=== PATIENT | female | born 1985 | race Caucasian/White ===

== ENCOUNTER → 2018-03-14 13:45 | Outpatient (CLI) | payer MEDICAID, SELFPAY ==
[2018-03-14 16:38] LABS: Estradiol 32.1 pg/mL; Follicle Stimulating Hormone 7.8 mIU/mL; Free T3 3.1 pg/mL (2.18-3.98); Prolactin 3.4 ng/mL; Thyroid Stim Hormone (TSH) 2.22 uIU/mL (0.358-3.74)
[2018-03-14 17:59] LABS: Progesterone Level 0.07 ng/mL (See Comment)
[2018-03-16 04:10] LABS: DHEA Sulfate 182.1 ug/dL (84.8-378.0)
[2018-03-16 10:23] LABS: Sex Hormone-binding Globulin 93.1 nmol/L (24.6-122.0)
[2018-03-18 12:34] LABS: 17-Hydroxyprogesterone 19 ng/dL (.)
== END ==
PROVIDERS: Visit Provider Obstetrics & Gynecology
DX: N91.2 Amenorrhea, unspecified (principal)
CPT/HCPCS: 82306; 82533; 82627; 82670; 83001; 83498; 84144; 84146; 84270; 84403; 84439; 84443; 84481; 82626

== ENCOUNTER → 2018-05-11 10:52 | Outpatient (CLI) | payer OTHER, MEDICAID, SELFPAY ==
[2018-05-11 13:55] LABS: Estradiol 38.2 pg/mL
[2018-05-11 14:00] LABS: Progesterone Level 0.21 ng/mL (See Comment)
== END ==
PROVIDERS: Visit Provider Obstetrics & Gynecology
DX: N91.2 Amenorrhea, unspecified (principal)
CPT/HCPCS: 36415; 82670; 84144

== ENCOUNTER → 2018-05-18 13:38 | Outpatient (CLI) | payer OTHER, MEDICAID, SELFPAY ==
[2018-05-18 19:27] LABS: Estradiol < 11.0 pg/mL
[2018-05-18 19:35] LABS: Progesterone Level 0.19 ng/mL (See Comment)
== END ==
PROVIDERS: Visit Provider Obstetrics & Gynecology
DX: N91.2 Amenorrhea, unspecified (principal)
CPT/HCPCS: 36415; 82670; 84144

== ENCOUNTER → 2019-04-19 16:44 | Outpatient (CLI) | payer OTHER, SELFPAY ==
[2019-04-19 18:06] LABS: AST(SGOT) 22 U/L (15-37); Alanine Aminotransfer ALT/SGPT 22 U/L (13-56); Ferritin 27 ng/mL (8-252); Rheumatoid Factor < 10.0 IU/mL (<15)
[2019-04-21 16:40] LABS: ANTINUCLEAR ANTIBODIES DIRECT Negative (Negative)
[2019-04-22 06:16] LABS: Endomysial Antibody IgA Negative (Negative); Immunoglobulin A 175 mg/dL (87-352)
[2019-04-24 20:22] LABS: Copper, Serum or Plasma 84 ug/dL (72-166); Deamidated Gliadin IgA 4 units (0-19); Deamidated Gliadin IgG 4 units (0-19); t-Transglutaminase IgA <2 U/mL (0-3)
== END ==
PROVIDERS: Visit Provider Obstetrics & Gynecology
DX: N91.2 Amenorrhea, unspecified (principal)
CPT/HCPCS: 82525; 82728; 82784; 83516; 84450; 84460; 86038; 86255; 86431

== ENCOUNTER → 2020-05-01 16:04 | Outpatient (CLI) | payer SELFPAY ==
[2020-05-03 10:59] LABS: Cancer Antigen 125 11.3 U/mL (0.0-38.1)
== END ==
PROVIDERS: Visit Provider Obstetrics & Gynecology
DX: N83.209 Unspecified ovarian cyst, unspecified side (principal)
CPT/HCPCS: 36415; 86304

== ENCOUNTER → 2020-06-12 15:05 | Outpatient (CLI) | payer SELFPAY ==
--- NOTE | 2020-06-12 15:19 | CT_ITS ---
HISTORY: PELVIC MASS, BURNING PAIN? COMPLEX CYSTHX-MISCARRIAGE 03/2020 TECHNIQUE: Helically acquired images were obtained of the abdomen and pelvis following the intravenous administration of ml of Gastrografin Tamp; 100mL Isovue-300 Iodinated contrast. After a delay contiguous helical images were obtained from above the right kidney to the bottom of the urinary bladder. 2D reformats. Oral contrast was administered. A radiation dose optimization technique was used for this scan. COMPARISON: CT scan of the abdomen and pelvis from August 10, 2016 FINDINGS: # of images incl. paperwork: [id number] LUNG BASES: Clear. CT abdomen: The stomach is distended with gas, liquid, and ingested food Bones are unremarkable. The gallbladder remains. Liver, spleen, pancreas, and adrenal glands, are normal. The kidneys are normal. The aorta is normal. CT pelvis: No ascites is present. The appendix is normal. Series 2 image 78. The uterus is not pathologically enlarged. The left ovary and may be enlarged with multiple cystic lesions. Definitively differentiate the left ovary.. The bladder is decompressed. Bowel gas pattern is normal. After a delay both kidneys achieve contrast well into nondilated systems. CT/Abdomen/Pelvis WITH Contrast IMPRESSION: The uterus is much smaller than on the previous study. I suggest the patient was recently on the August 10, 2016 study. Clinical history at that time was postop fever from . Within the right adnexa there is a complex cystic mass or masses. Overall I measured the cystic masses within the right adnexal region, likely the right ovary, measuring 3.8 x 7.1 x 5.4 cm. There are some enhancement of the septations or perhaps even enhancement to a dominant follicle within the right ovary. Whether this is all right ovary, or dilated fallopian tube I cannot discern. Hydrosalpinx, pyosalpinx, and ovarian neoplasia remain within the differential diagnosis., At the patient had the diagnosis of pelvic mass, comparison to the imaging, that gave her the diagnosis of a pelvic mass would be useful. And ovarian ultrasound may be able to further characterize the mass, but would be unlikely to be definitive in the diagnosis of the pathology. Follow-up imaging is warranted Individualized dose optimization techniques were used for this CT. at 2229 Reported and signed by: Mikael Darnell MD Electronically Signed: Mikael Darnell MD at 22:28 EST Tel , Service support ,
== END ==
PROVIDERS: Referring Provider Obstetrics & Gynecology; Visit Provider Obstetrics & Gynecology
DX: R19.00 Intra-abdominal and pelvic swelling, mass and lump, unspecified site (principal)
CPT/HCPCS: 74177; Q9967

== ENCOUNTER → 2020-10-30 | Outpatient (CLI) | payer SELFPAY ==
[2020-11-05 11:14] LABS: HPV APTIMA, High Risk Negative (Negative)
== END | disposition home or self-care (01) ==
LOC: LABSPEC 16:33
PROVIDERS: Visit Provider Obstetrics & Gynecology
DX: Z12.4 Encounter for screening for malignant neoplasm of cervix (principal)
CPT/HCPCS: 87624; 88175; G0145

== ENCOUNTER 2022-01-20 10:33 | Emergency (ER) | payer OTHER, SELFPAY ==
[2022-01-20 10:35] VITALS: BP 107/69; PULSE 61; RESP 16; TEMP 36.6; O2SAT 100; BMI 22.7
--- NOTE | 2022-01-20 10:55 | US_ITS ---
STUDY: FIRST TRIMESTER OBSTETRICAL ULTRASOUND REASON FOR EXAM: Female, 36 years old left pelvis pain, vag bleeding TECHNIQUE: Transabdominal and Transvaginal TECHNICAL QUALITY: Adequate. PRIOR ULTRASOUND: None. FINDINGS: There is no demonstrated intrauterine gestational sac. The uterus measures 8 x 5.8 x 3.8 cm. There is no demonstrated uterine fibroid. The cervix is closed. The right ovary measures 3 x 2.1 x 2.8 cm. There is no right ovarian cyst. There is no visualized right adnexal mass or complex lesion. The left ovary measures 3.5 x 3.6 x 2 cm. There is no left ovarian cyst. There is no visualized left adnexal mass or complex lesion. There is minimal fluid in the cul de sac. US/Transvaginal w/Preg US IMPRESSION: No IUP is seen. Ectopic cannot be excluded. A bull''s-eye shaped structure in the left ovary measures 1.5 cm in diameter most likely represent an involuting cyst. Electronically Signed: Carlos White MD at 12:22 EDT ,
--- NOTE | 2022-01-20 10:55 | ED.VIS.FEGU ---
HPI HPI - Female History of Present Illness Chief Complaint: Vag Bld, Preg Informant: patient Bleeding Issue: Positive for Vaginal bleeding Onset: Days (3) Current Severity: Mild Associated Symptoms Associated Symptoms: Negative for Dysuria, Frequency, Urgency or Hematuria Narrative Narrative: Vaginal bleeding for the last couple days as well as some mild left pelvic pain. She had her last normal menstrual cycle started on 01/11 after she was late and took a negative test, then she continued spotting and had a positive test afterwards 2 days ago from today. She went to [facility] and had an ultrasound and a quantitative hCG 2 days ago that showed corpus luteum cyst versus ectopic and her quantitative hCG was only 100. She had a repeat yesterday and it was 60. She is continuing to have mild bleeding and pain, she discussed with her OB and she was advised to come back for repeat ultrasound here in ER. She denies any syncope or near syncope episodes. Her blood type was verified to be O+. She had an ectopic last year that resulted in surgical salpingectomy on the right. PFSH PFS Medical History (Updated 01/20/22 @ 13:[address] Jaspreet Krishna MD) History of ectopic Medical History no medical history no medical history Home Medications thyroid (pork) 30 mg tablet ([facility] Thyroid) 30 mg PO DAILY 01/20/22 [History Last Taken Unknown] Allergy/AdvReac Type Severity Reaction Status Date / Time No Known Allergies Allergy Verified 01/20/22 10:38 Surgical History (Updated 01/20/22 @ 10:[address] Jaspreet Krishna MD) History of salpingectomy Social History Smoking Status: Never smoker ROS ROS ED Constitutional Constitutional ED: Denies chills or fever(s) Eyes Eyes: Denies change in vision or diplopia ENT ENT ED: Denies rhinorrhea or sore throat Cardiovascular Cardiovascular: Denies chest pain or palpitations Respiratory/Chest Respiratory/Chest: Denies cough or dyspnea Gastrointestinal Gastrointestinal: Reports abdominal pain; Denies diarrhea, nausea or vomiting Genitourinary Genitourinary ED: Reports vaginal bleeding; Denies dysuria or hematuria Musculoskeletal Musculoskeletal: Denies back pain or neck pain Integumentary Denies abscess or rash Neurologic Neurologic: Denies headache(s), paresthesias or weakness Psychiatric Psychiatric: Denies anxiety or suicidal thoughts EXAM Physical Exam Const Vital Signs: 01/20/22 10:35 Temperature 97.8 F Temperature Source Temporal Pulse Rate 61 Respiratory Rate 16 Blood Pressure 107/69 Blood Pressure Mean 81 Pulse Ox 100 Oxygen Delivery Method Room Air Positive well nourished and well developed General Appearance ED: well developed and NAD HEENT Reports moist mucous membranes normocephalic and atraumatic Eyes PERRL and EOMs intact bilaterally Neck full ROM and supple Resp normal respiratory effort and clear to auscultation bilaterally Cardio regular rate, regular rhythm and no murmurs Rate: Negative for tachycardic GI non-tender and non-distended Auscultation: normoactive bowel sounds Palpation: soft Speculum Exam - Vagina: vaginal bleeding Back/Spine no CVA tenderness General Back: other FROM Extremity normal to inspection General Extremety ED: Negative for edema, pulses abnormal or tenderness General Extremity: Negative for edema or pulses abnormal Neuro oriented x3, CN's II-XII intact bilaterally and no sensory deficits noted Sensorium / Orientation: awake and alert Motor Exam: strength 5/5 throughout Skin no rashes or lesions noted and no wounds MDM MDM MDM Narrative Medical decision making narrative: At this time the patient's quantitative hCG is 51 and the ultrasound results are noted below. I do not think this patient has a viable growing since her quantitative hCG continues to go down and is extremely low. I discussed with Dr. Maty Ross, she is in agreement and agrees the patient can be discharged and followed up clinically as an outpatient to resolution. If she is not able to get in shortly/soon, she can do a home test in a week or 2 and if negative would indicate cleared hCG, and she probably had a miscarriage. Lab Data Attestation: I reviewed the patient's lab results. Labs: Laboratory Results - last 24 hr 01/20/22 01/20/22 11:07 11:07 WBC 5.0 RBC 3.75 L Hgb 11.7 L Hct 35.5 L MCV 94.7 MCH 31.2 MCHC 33.0 RDW Std Deviation 45.3 H RDW Coeff of [place] 13.2 Plt Count 227 MPV 10.1 Immature Gran % (Auto) 0.400 Neut % (Auto) 63.5 Lymph % (Auto) 29.0 [place] % (Auto) 6.7 Eos % (Auto) 0.2 Baso % (Auto) 0.2 Absolute Neuts (auto) 3.2 Absolute Lymphs (auto) 1.44 Nucleated RBC % 0 HCG, Quant 51 H Radiography Diagnostic Testing: Clinical Impression(s) from Imaging Studies Obstetrics Ultrasound 01/20/22 10:55 IMPRESSION: No IUP is seen. Ectopic cannot be excluded. A bull''s-eye shaped structure in the left ovary measures 1.5 cm in diameter most likely represent an involuting cyst. Electronically Signed: Carlos White MD at 12:22 EDT , Discharge Plan Triage Chief Complaint: Vag Bld, Preg Other Complaint: ED Provider: Jaspreet Krishna Dx/Rx/DC Orders Clinical Impression: Complete miscarriage Instructions: ED Miscarriage Spontaneous Prescriptions: No Action thyroid (pork) [[facility] [employer] Thyroid] 30 mg tablet 30 mg PO DAILY Primary Care Provider: Care Physician,No Primary Referrals: Maty Ross DO [Med Staff - Active Staff] - (Call in for appointment) Care Physician,No Primary [Primary Care Provider] - Disposition Disposition: Home, Self Care
[2022-01-20 11:13] LABS: Absolute Lymphocyte Count 1.44 X10^3/uL (0.83-4.51); Absolute Neutrophil Count 3.2 X10^3/uL (2.0-7.7); Basophil# 0.01 X10^3/uL; Basophil% 0.2 % (0-1); Eosinophil# 0.01 X10^3/uL; Eosinophils% 0.2 % (0-5); Hematocrit 35.5 % (37-47); Hemoglobin 11.7 g/dL (12.0-15.0); Lymphocyte # 1.44 X10^3/ul (0.83-4.51); Mean Corpuscular Hgb 31.2 pg (27.0-32.0); Mean Corpuscular Volume 94.7 fL (81-99); Mean Platelet Vol. 10.1 fl (6.2-12.0); Monocyte# 0.33 X10^3/uL; Monocyte% 6.7 % (0-10); NRBC Flagged by Analyzer 0 % (0-5); Neutrophil # 3.15 X10^3/uL (2.7-7.7); Neutrophil % 63.5 % (47-70); Platelet Count 227 K/mm3 (150-450); RBC Distribution Width CV 13.2 % (11.6-14.6); RBC Distribution Width SD 45.3 fl (35.1-43.9); Red Blood Count 3.75 M/mm3 (4.2-5.4)
[2022-01-20 11:48] LABS: hCG Titer Quant., Serum 51 mIU/mL (1-3)
== END 2022-01-20 14:00 | disposition home or self-care (01) ==
PROVIDERS: Emergency Provider Emergency Medicine; Visit Provider Emergency Medicine
DX: O03.9 Complete or unspecified spontaneous abortion without complication (principal)
CPT/HCPCS: 76817; 84702; 85025; 99282